=== PATIENT | male | born 1990 | race Caucasian/White ===

== ENCOUNTER 2017-08-16 00:54 | Emergency (ER) | payer OTHER ==
[2017-08-16 01:01] VITALS: RESP 18; TEMP 98.8
--- NOTE | 2017-08-16 01:38 | EDPHY ---
H & P Stated Complaint: r 5th finger infection Time Seen by Provider: 08/16/17 01:11 HPI/ROS: Chief Complaint: Finger infection, cough, fever HPI: 27-year-old male presenting with 2 days of worsening swelling and pain of his right little finger and his left middle finger. Patient states this started after he went skiing using an old para ski labs over the weekend. He has also had some cough and congestion for the last several days. Cough is nonproductive. Some subjective fevers and chills at home. No nausea or vomiting. No chest pain. No lightheadedness or fainting. ROS: 10 point Review of Systems is negative except as noted in the HPI. PMH: None Social History: No smoking, no alcohol, no recreational drug use Family History: non-contributory Physical Exam: Gen: Awake, Alert, No Distress HEENT: Nose: no rhinorrhea Eyes: PERRLA, EOMI Mouth: Moist mucosa Neck: Supple, no JVD Chest: nontender, lungs clear to auscultation Heart: S1, S2 normal, no murmur Abd: Soft, non-tender, no guarding Back: no CVA tenderness, no midline tenderness Ext: There is a large paronychia on the dorsum of his right finger with some erythema coming progressing to the PIP joint. There is some fluctuance and planning with a large bowl or blister, left long finger has a small ulnar paronychia without significant erythema Skin: no rash Neuro: CN II-XII intact, Sensation grossly intact, Strength 5/5 in bilateral upper and lower extremities - Personal History Current Tetanus Diphtheria and Acellular Pertussis (TDAP): Yes Tetanus Vaccine Date: 2009 - Medical/Surgical History Hx Asthma: No Hx Chronic Respiratory Disease: No Hx Diabetes: No Hx Cardiac Disease: No Hx Renal Disease: No Hx Cirrhosis: No Hx Alcoholism: No Hx HIV/AIDS: No Hx Splenectomy or Spleen Trauma: No Other PMH: facial surgery - Social History Smoking Status: Current some day smoker Constitutional: Initial Vital Signs Temperature (C) 37.1 C 08/16/17 00:57 Heart Rate 113 H 08/16/17 00:57 Respiratory Rate 18 08/16/17 00:57 Blood Pressure 162/93 H 08/16/17 00:57 O2 Sat (%) 97 08/16/17 00:57 O2 Delivery Mode Room Air Allergies/Adverse Reactions: sulfa Allergy (Uncoded 05/27/14 12:21) Home Medications: Medication Instructions Recorded Cephalexin [Keflex (*)] 500 mg PO Q6H #40 cap 08/16/17 Sertraline HCl 08/16/17 Medical Decision Making Procedures: Procedure: Digital nerve block, indication is digit anesthesia for procedure. Patient was prepped with chlorhexidine Skin prep. 0.5% bupivacaine was infiltrated in the medial in lateral aspects for with a dorsal approach at the base of the proximal phalanx with blockage of both dorsal and volar nerves. Total of 1 mL was infiltrated. There were no complications. Procedure was performed by myself. Procedure: Abscess drainage. The patient's abscess was located on the right little finger. I obtained verbal consent from the patient to drain the abscess who was informed about the possibility of bleeding and pain. The abscess was incised with scissors and a small amount of purulent drainage was expressed. The patient tolerated the procedure well. The procedure was performed by myself. Procedure: Abscess drainage. The patient's abscess was located on the left long. I obtained verbal consent from the patient to drain the abscess who was informed about the possibility of bleeding and pain. The abscess was incised with scissors and a small amount of purulent drainage was expressed. The patient tolerated the procedure well. The procedure was performed by myself. ED Course/Re-evaluation: Patient with blisters in paronychia on bilateral hands after using old ski goes. He has got some erythema on his right small finger. Will start him on Keflex. Will refer him to follow up with Hand surgery in 2-3 days. Regarding his cough, symptoms consistent with viral upper respiratory infection. No indication for antibiotics at this time. Departure - Departure Disposition: Home, Routine, Self-Care Clinical Impression: Paronychia of finger, Viral URI Condition: Good Instructions: Paronychia (ED), Upper Respiratory Infection (ED) Additional Instructions: Alternate acetaminophen (1000 mg) with ibuprofen (400 mg) every 4 hours as needed for fevers, chills, aches or pains. Take your full course of antibiotics. Follow up with hand surgeon in 2-3 days for further evaluation. Return to the emergency depart for increasing redness, worsening pain, uncontrolled fevers or chills, or any other concerns. Referrals: Joaquin Michaels MD [Medical Doctor] - As per Instructions Prescriptions: Cephalexin [Keflex (*)] 500 mg PO Q6H #40 cap
[2017-08-16] MEDS ORDERED: CEPHALEXIN 500MG PREPACK#4 BTL TAKEHOME ONE (01:54)
[2017-08-16] MEDS ORDERED: CEPHALEXIN 500 MG CAP PO ONE (01:54)
[2017-08-16 02:21] VITALS: BP 155/97; PULSE 93; O2SAT 95
== END 2017-08-16 02:21 | disposition home or self-care (01) ==
PROC: 0H9FXZZ Drainage of Right Hand Skin, External Approach (ICD-10-PCS; principal; 2017-08-16)
PROC: 0H9EXZZ Drainage of Left Lower Arm Skin, External Approach (ICD-10-PCS; principal; 2017-08-16)
DX: L03.011 Cellulitis of right finger (principal); L03.012 Cellulitis of left finger; J06.9 Acute upper respiratory infection, unspecified; F17.200 Nicotine dependence, unspecified, uncomplicated